=== PATIENT | male | born 1950 | race Hispanic/Latino ===

== ENCOUNTER 2019-12-16 08:26 | Emergency (ER) | payer MEDICARE, BC ==
[~2019-12-16] VITALS: Ht 195.6 cm; Wt 107.0 kg
[~2019-12-16 08:26] MED LIST: ASPIRIN325 MG PO; DIOVAN HCT 3201 EACH PO; FENOFIBRATE145 MG PO; GLIMEPIRIDE2 MG PO; LANTUS100 UNITS/ SC; MULTI-VITAMIN1 EACH PO; OMEPRAZOLE20 M1 PO; ONGLYZA5 MG PO; TYLENOL WITH C1 EACH PO
[2019-12-16] MEDS ORDERED: HYDROCODONE/APAP 7.5MG-325MG 1 EA TAB PO NR (09:00)
--- NOTE | 2019-12-16 09:23 | Diagnostic Imaging Report ---
Exam: Left rib series History: Fall from bed, rib pain Comparison: None. Findings: The lungs are well-inflated and without consolidation, pleural effusion, or pneumothorax. Cardiomediastinal contour and pulmonary vasculature are within normal limits for technique. No displaced left rib fracture. Impression: No displaced rib fracture or pneumothorax. Signed by: Dr. Errol Clemente M.D. on 12/16/2019 9:20 AM
== END 2019-12-16 10:22 | disposition home or self-care (01) ==
LOC: ER 08:26
DX: S20.212A Contusion of left front wall of thorax, initial encounter (principal); W06.XXXA Fall from bed, initial encounter; Y93.84 Activity, sleeping; Y92.003 Bedroom of unspecified non-institutional (private) residence as the place of occurrence of the external cause; I10 Essential (primary) hypertension; E11.9 Type 2 diabetes mellitus without complications
CPT/HCPCS: 71101; 93005; 99283